=== PATIENT | male | born 1990 | race Two or more races ===

== ENCOUNTER 2020-06-17 11:50 | Emergency (ER) | payer BC ==
[~2020-06-17] VITALS: Ht 182.9 cm; Wt 82.6 kg
== END 2020-06-17 17:22 | disposition home or self-care (01) ==
LOC: ER 11:50
DX: R53.81 Other malaise (principal); F06.4 Anxiety disorder due to known physiological condition; Z03.818 Encounter for observation for suspected exposure to other biological agents ruled out